=== PATIENT | female | born 1950 | race African-American/Black ===

== ENCOUNTER 2019-03-11 17:23 | Emergency (ER) | payer MEDICARE, MEDICAID ==
[~2019-03-11] VITALS: Ht 157.5 cm; Wt 90.9 kg
[~2019-03-11 17:23] MED LIST: CARI350 PO; DIAZ10 PO; HYDR25TA PO; LOSA50TA64 PO; OMEP20 PO; ONDA4FIL5 PO; TIMO.5OS OU; ZOLP10TA7 PO; [UNRECOGNIZED DRUG - CODE] IM
[2019-03-11] MEDS ORDERED: ESZO2 PO (18:09)
[2019-03-11] MEDS ORDERED: HYDR25TA84 PO (18:09)
[2019-03-11] MEDS ORDERED: BACL10TA PO (18:09)
[2019-03-11] MEDS ORDERED: AMLO10TA7 PO (18:09)
[2019-03-11] MEDS ORDERED: NAPR1TAB24 PO (18:09)
[2019-03-11] MEDS ORDERED: ALBUTEROL SULFATE 2.5 MG/0.5 ML NEB SOLUTION NEB ONE (19:45)
[2019-03-11] MEDS ORDERED: IPRATROPIUM BROMIDE 0.5 MG/2.5 ML NEB SOLUTION NEB ONE (19:45)
[2019-03-11 21:15] VITALS: BP 144/79
== END 2019-03-11 22:00 | disposition home or self-care (01) ==
LOC: EMS 17:24
DX: J20.9 Acute bronchitis, unspecified (principal); I10 Essential (primary) hypertension; F12.90 Cannabis use, unspecified, uncomplicated; Z91.041 Radiographic dye allergy status
CPT/HCPCS: 94640

== ENCOUNTER → 2019-05-25 | Outpatient (CLI) | payer MEDICARE, MEDICAID ==
[~2019-05-25] MED LIST changes: +AMLO10TA7 PO; +BACL10TA PO; -CARI350 PO; +CARI350T26 PO; +ESZO2 PO; +HYDR25TA84 PO; +NAPR1TAB24 PO; -OMEP20 PO; -ONDA4FIL5 PO; -ZOLP10TA7 PO; -[UNRECOGNIZED DRUG - CODE] IM
== END | disposition home or self-care (01) ==
LOC: RADMN 15:42
PROVIDERS: ATTEND Legal Medicine
DX: M85.88 Other specified disorders of bone density and structure, other site (principal); M50.33 Other cervical disc degeneration, cervicothoracic region; M46.03 Spinal enthesopathy, cervicothoracic region; M17.11 Unilateral primary osteoarthritis, right knee; M25.761 Osteophyte, right knee
CPT/HCPCS: 72072

== ENCOUNTER 2021-10-09 09:10 | Emergency (ER) | payer MEDICARE, MEDICAID ==
[~2021-10-09] VITALS: Ht 157.5 cm; Wt 104.1 kg
[~2021-10-09 09:10] MED LIST changes: +AMLO-258 PO; -AMLO10TA7 PO; -HYDR25TA PO; +HYDR25TA2 PO; +LOSA-382 PO; -LOSA50TA64 PO
[2021-10-09 11:38] VITALS: BP 154/90
[2021-10-09] MEDS ORDERED: PRED-554 PO (12:19)
[2021-10-09] MEDS ORDERED: KETOROLAC TROMETHAMINE 30 MG/ML VIAL IM ONE (12:30)
== END 2021-10-09 12:42 | disposition home or self-care (01) ==
LOC: EMS 09:19
DX: M77.8 Other enthesopathies, not elsewhere classified (principal); I10 Essential (primary) hypertension; F12.90 Cannabis use, unspecified, uncomplicated; Z91.041 Radiographic dye allergy status
CPT/HCPCS: 73630; 93971; 96372; 99284; J1885

== ENCOUNTER 2021-12-17 20:11 | Emergency (ER) | payer MEDICARE, MEDICAID ==
[~2021-12-17] VITALS: Ht 167.6 cm; Wt 97.7 kg
[~2021-12-17 20:11] MED LIST changes: +CARI-493 PO; -CARI350T26 PO; +HYDR-4870 PO; -HYDR25TA2 PO; +PRED-554 PO
[2021-12-17 21:09] VITALS: BP 166/92
[2021-12-17 21:13] LABS: BASOPHILS % (AUTO) 0.6 % (0.0-2.0); EOSINOPHILS % (AUTO) 1.9 % (1.0-6.0); HEMATOCRIT 37.8 % (36-46); HEMOGLOBIN 12.3 g/dL (12.0-16.0); LYMPHOCYTES # (AUTO) 1.7 K/uL (1.0-4.8); LYMPHOCYTES % (AUTO) 30.8 % (22.0-44.0); MEAN CORPUSCULAR HEMOGLOBIN 27.7 pg (26.0-34.0); MEAN CORPUSCULAR HGB CONC 32.4 G/dL (31.0-37.0); MEAN CORPUSCULAR VOLUME 85 fL (80-100); MONOCYTES # (AUTO) 0.5 K/uL (0.1-1.0); MONOCYTES % (AUTO) 9.2 % (2.0-9.0); NEUTROPHILS # (AUTO) 3.2 K/uL (1.8-7.7); NEUTROPHILS % (AUTO) 57.5 % (40.0-70.0); PLATELET COUNT (AUTO) 260 K/uL (150-450); RED BLOOD CELL COUNT(AUTO) 4.43 MIL/uL (4.00-5.20); RED CELL DISTRIBUTION WIDTH 13.6 % (11.5-14.5)
[2021-12-17 21:15] LABS: COVID AG,FIA SOURCE NASAL SWAB
[2021-12-17 21:28] LABS: CREATININE 2.11 mg/dL (0.60-1.30); POTASSIUM 3.6 mmol/L (3.5-5.1)
[2021-12-17 21:30] LABS: ALBUMIN 3.6 g/dL (3.4-5.0); BILIRUBIN,TOTAL 0.5 mg/dL (0.1-1.0); TOTAL PROTEIN, SERUM 7.4 g/dL (6.4-8.2)
[2021-12-17 21:33] LABS: INFLUENZA TYPE A NEGATIVE FOR TYPE A (NEGATIVE); INFLUENZA TYPE B NEGATIVE FOR TYPE B (NEGATIVE)
[2021-12-17] MEDS ORDERED: ACETAMINOPHEN 500 MG TABLET PO ONE (21:45)
[2021-12-17] MEDS ORDERED: GuaiFENesin/D-METHORPHAN [SUGAR-FREE] 200-20MG/10 ML SYRUP UDCUP PO ONE (21:45)
[2021-12-17] MEDS ORDERED: PROM6.2514 PO (22:09)
[2021-12-17] MEDS ORDERED: ACET-66 PO (22:09)
== END 2021-12-17 22:32 | disposition home or self-care (01) ==
LOC: EMS 20:15
DX: J06.9 Acute upper respiratory infection, unspecified (principal); I12.9 Hypertensive chronic kidney disease with stage 1 through stage 4 chronic kidney disease, or unspecified chronic kidney disease; N18.9 Chronic kidney disease, unspecified; H40.9 Unspecified glaucoma; F12.90 Cannabis use, unspecified, uncomplicated; Z90.710 Acquired absence of both cervix and uterus; Z91.041 Radiographic dye allergy status; Z20.822 Contact with and (suspected) exposure to COVID-19
CPT/HCPCS: 71045; 80053; 84484; 85025; 87804; 93005; 99285; 36415-L1; 36415-TC

== ENCOUNTER 2022-05-18 17:24 | Emergency (ER) | payer MEDICARE, MEDICAID ==
[~2022-05-18] VITALS: Ht 157.5 cm; Wt 90.9 kg
[~2022-05-18 17:24] MED LIST changes: +ACET-66 PO; -HYDR-4870 PO; +HYDR25TA2 PO; +PROM6.2514 PO; -TIMO.5OS OU; +TIMO5DRO21 OU
[2022-05-18 17:31] VITALS: BP 123/76
[2022-05-18 20:06] LABS: BASOPHILS % (AUTO) 0.5 % (0.0-2.0); EOSINOPHILS % (AUTO) 0.9 % (1.0-6.0); HEMATOCRIT 38.2 % (36-46); HEMOGLOBIN 12.2 g/dL (12.0-16.0); LYMPHOCYTES # (AUTO) 2.4 K/uL (1.0-4.8); LYMPHOCYTES % (AUTO) 37.5 % (22.0-44.0); MEAN CORPUSCULAR HEMOGLOBIN 27.5 pg (26.0-34.0); MEAN CORPUSCULAR HGB CONC 31.9 G/dL (31.0-37.0); MEAN CORPUSCULAR VOLUME 86 fL (80-100); MONOCYTES # (AUTO) 0.4 K/uL (0.1-1.0); MONOCYTES % (AUTO) 6.5 % (2.0-9.0); NEUTROPHILS # (AUTO) 3.5 K/uL (1.8-7.7); NEUTROPHILS % (AUTO) 54.6 % (40.0-70.0); PLATELET COUNT (AUTO) 277 K/uL (150-450); RED BLOOD CELL COUNT(AUTO) 4.42 MIL/uL (4.00-5.20); RED CELL DISTRIBUTION WIDTH 14.4 % (11.5-14.5)
[2022-05-18 20:13] LABS: CALCIUM, TOTAL 9.3 mg/dL (8.8-10.5); CREATININE 2.94 mg/dL (0.60-1.30); POTASSIUM 3.7 mmol/L (3.5-5.1)
[2022-05-18 20:19] LABS: ALBUMIN 3.7 g/dL (3.4-5.0); BILIRUBIN,TOTAL 0.5 mg/dL (0.1-1.0); TOTAL PROTEIN, SERUM 7.6 g/dL (6.4-8.2)
[2022-05-18 20:22] LABS: LACTIC ACID 1.7 mmol/L (0.4-2.0)
[2022-05-18] MEDS ORDERED: TRAM-559 PO (21:17)
[2022-05-18] MEDS ORDERED: TraMADol HCL 50 MG TABLET PO ONE (21:30)
== END 2022-05-18 21:45 | disposition home or self-care (01) ==
LOC: EMS 17:29
DX: R51.9 Headache, unspecified (principal); I12.9 Hypertensive chronic kidney disease with stage 1 through stage 4 chronic kidney disease, or unspecified chronic kidney disease; N18.9 Chronic kidney disease, unspecified; M17.9 Osteoarthritis of knee, unspecified; M54.50 Low back pain, unspecified; H40.9 Unspecified glaucoma; F12.90 Cannabis use, unspecified, uncomplicated; Z90.710 Acquired absence of both cervix and uterus; Z91.041 Radiographic dye allergy status
CPT/HCPCS: 70450; 80053; 83605; 84484; 85025; 99285

== ENCOUNTER 2022-11-18 20:22 | Emergency (ER) | payer MEDICARE, MEDICAID ==
[~2022-11-18] VITALS: Ht 157.5 cm; Wt 118.2 kg
[~2022-11-18 20:22] MED LIST changes: -CARI-493 PO; -DIAZ10 PO; -ESZO2 PO; +ESZO2TAB46 PO; +HYDR-4870 PO; -HYDR25TA2 PO; -PRED-554 PO; +TRAM-559 PO
[2022-11-18 20:54] LABS: BASOPHILS % (AUTO) 0.9 % (0.0-2.0); EOSINOPHILS % (AUTO) 1.8 % (1.0-6.0); HEMATOCRIT 35.5 % (36-46); HEMOGLOBIN 11.3 g/dL (12.0-16.0); LYMPHOCYTES # (AUTO) 2.6 K/uL (1.0-4.8); LYMPHOCYTES % (AUTO) 38.1 % (22.0-44.0); MEAN CORPUSCULAR HEMOGLOBIN 27.8 pg (26.0-34.0); MEAN CORPUSCULAR HGB CONC 31.8 G/dL (31.0-37.0); MEAN CORPUSCULAR VOLUME 88 fL (80-100); MONOCYTES # (AUTO) 0.4 K/uL (0.1-1.0); MONOCYTES % (AUTO) 6.5 % (2.0-9.0); NEUTROPHILS # (AUTO) 3.6 K/uL (1.8-7.7); NEUTROPHILS % (AUTO) 52.7 % (40.0-70.0); PLATELET COUNT (AUTO) 281 K/uL (150-450); RED BLOOD CELL COUNT(AUTO) 4.06 MIL/uL (4.00-5.20)
[2022-11-18 21:03] LABS: CALCIUM, TOTAL 9.3 mg/dL (8.8-10.5); CREATININE 3.44 mg/dL (0.60-1.30); POTASSIUM 3.4 mmol/L (3.5-5.1)
[2022-11-18 21:09] LABS: ALBUMIN 3.7 g/dL (3.4-5.0); BILIRUBIN,TOTAL 0.5 mg/dL (0.1-1.0); TOTAL PROTEIN, SERUM 7.6 g/dL (6.4-8.2)
[2022-11-18 21:12] LABS: LACTIC ACID 1.5 mmol/L (0.4-2.0)
[2022-11-18 22:58] LABS: APPEARANCE,URINE CLEAR (CLEAR); BILIRUBIN,URINE NEGATIVE (NEGATIVE); GLUCOSE, URINE (UA) NEGATIVE (NEGATIVE); KETONES,URINE NEGATIVE (NEGATIVE); LEUKOCYTE ESTERASE ,URINE NEGATIVE (NEGATIVE); NITRATE,URINE NEGATIVE (NEGATIVE); OCCULT BLOOD,URINE NEGATIVE (NEGATIVE); PH,URINE 5.5 (5.0-8.0); PROTEIN,URINE NEGATIVE (NEGATIVE); SPECIFIC GRAVITIY, URINE 1.012 (1.003-1.030); UROBILINOGEN,URINE <=1.0 mg/dL (<=1.0)
[2022-11-18 23:07] LABS: BACTERIA,URINE None Seen /HPF (None Seen); RBC,URINE 0-2 /HPF (0-2); SQUAMOUS EPITHELIAL CELL,UR Few /LPF (None Seen); WBC,URINE 0-2 /HPF (0-5)
[2022-11-19] MEDS ORDERED: ACETAMINOPHEN 500 MG TABLET PO ONE (03:45)
[2022-11-19 03:51] VITALS: BP 106/61
== END 2022-11-19 03:55 | disposition home or self-care (01) ==
LOC: EMS 20:23
DX: R10.12 Left upper quadrant pain (principal); I10 Essential (primary) hypertension; Z90.710 Acquired absence of both cervix and uterus; Z88.8 Allergy status to other drugs, medicaments and biological substances
CPT/HCPCS: 71045; 74176; 80053; 81001; 83605; 83690; 84484; 85025; 93005; 99285; 36415-L1; 36415-TC

== ENCOUNTER 2023-04-13 10:44 | Emergency (ER) | payer MEDICARE, MEDICAID ==
[~2023-04-13] VITALS: Ht 147.3 cm; Wt 107.3 kg
[~2023-04-13 10:44] MED LIST changes: -HYDR-4870 PO; +HYDR25TA2 PO
[2023-04-13 11:21] LABS: BASOPHILS % (AUTO) 1.5 % (0.0-2.0); EOSINOPHILS % (AUTO) 0.7 % (1.0-6.0); HEMATOCRIT 36.2 % (36-46); HEMOGLOBIN 11.5 g/dL (12.0-16.0); LYMPHOCYTES # (AUTO) 1.5 K/uL (1.0-4.8); LYMPHOCYTES % (AUTO) 30.3 % (22.0-44.0); MEAN CORPUSCULAR HEMOGLOBIN 27.8 pg (26.0-34.0); MEAN CORPUSCULAR HGB CONC 31.9 G/dL (31.0-37.0); MEAN CORPUSCULAR VOLUME 87 fL (80-100); MONOCYTES # (AUTO) 0.3 K/uL (0.1-1.0); NEUTROPHILS % (AUTO) 60.5 % (40.0-70.0); PLATELET COUNT (AUTO) 244 K/uL (150-450); RED BLOOD CELL COUNT(AUTO) 4.15 MIL/uL (4.00-5.20); RED CELL DISTRIBUTION WIDTH 14.3 % (11.5-14.5); WHITE BLOOD COUNT (AUTO) 4.9 K/uL (4.5-11.0)
[2023-04-13 11:52] LABS: CALCIUM, TOTAL 9.3 mg/dL (8.8-10.5); CREATININE 1.94 mg/dL (0.60-1.30); POTASSIUM 3.7 mmol/L (3.5-5.1)
[2023-04-13 12:00] LABS: TROPONIN I-HIGH SENSITIVITY 12 ng/L (<51)
[2023-04-13 12:08] VITALS: TEMP 98.6
[2023-04-13 12:16] LABS: ALBUMIN 3.5 g/dL (3.4-5.0); BILIRUBIN,TOTAL 0.8 mg/dL (0.1-1.0); TOTAL PROTEIN, SERUM 7.2 g/dL (6.4-8.2)
[2023-04-13] MEDS ORDERED: KETOROLAC TROMETHAMINE 30 MG/ML VIAL IVP ONE (14:00)
[2023-04-13] MEDS ORDERED: ONDANSETRON HCL 4 MG/2 ML VIAL IVP ONE (14:00)
[2023-04-13] MEDS ORDERED: SODIUM CHLORIDE 0.9% 1,000 ML IV ONE (14:00)
[2023-04-13] MEDS ORDERED: MORPHINE SULFATE 4 MG/ML SYRINGE IVP ONE (14:00)
[2023-04-13 14:11] LABS: APPEARANCE,URINE CLEAR (CLEAR); BILIRUBIN,URINE NEGATIVE (NEGATIVE); COLOR,URINE LIGHT YELLOW (YELLOW); GLUCOSE, URINE (UA) NEGATIVE (NEGATIVE); KETONES,URINE NEGATIVE (NEGATIVE); LEUKOCYTE ESTERASE ,URINE NEGATIVE (NEGATIVE); NITRATE,URINE NEGATIVE (NEGATIVE); OCCULT BLOOD,URINE NEGATIVE (NEGATIVE); PH,URINE 5.5 (5.0-8.0); PROTEIN,URINE NEGATIVE (NEGATIVE); SPECIFIC GRAVITIY, URINE 1.015 (1.003-1.030); UROBILINOGEN,URINE <=1.0 mg/dL (<=1.0)
[2023-04-13] MEDS ORDERED: BACL10TA PO (15:30)
[2023-04-13] MEDS ORDERED: ACET-66 PO (15:30)
[2023-04-13] MEDS ORDERED: TRAM-559 PO (15:30)
[2023-04-13] MEDS ORDERED: DiphenhydrAMINE HCL 50 MG/ML VIAL IVP ONE (15:30)
[2023-04-13 16:50] VITALS: BP 142/82; PULSE 90; RESP 17
== END 2023-04-13 16:55 | disposition home or self-care (01) ==
LOC: EMS 10:44
DX: S39.012A Strain of muscle, fascia and tendon of lower back, initial encounter (principal); R07.89 Other chest pain; I12.9 Hypertensive chronic kidney disease with stage 1 through stage 4 chronic kidney disease, or unspecified chronic kidney disease; N18.9 Chronic kidney disease, unspecified; Z88.2 Allergy status to sulfonamides; Z91.041 Radiographic dye allergy status; Z79.899 Other long term (current) drug therapy; X50.9XXA Other and unspecified overexertion or strenuous movements or postures, initial encounter; Y93.89 Activity, other specified; Y92.89 Other specified places as the place of occurrence of the external cause; Y99.8 Other external cause status
CPT/HCPCS: 99285; 74176; 96374; 96375; 71045; 96361; 80053; 81003; 82550; 83690; 83880; 84484; 85025; 36415; 93005; J1200; J1885; J2270; J2405; J7030